=== PATIENT | male | born 1975 | race African-American/Black ===

== ENCOUNTER → 2017-05-10 | Outpatient (CLI) | payer BC ==
[2017-05-10 16:05] LABS: ALBUMIN 3.7 g/dL (3.4-5.0); ALK PHOS 75 U/L (46-116); ALT (SGPT) 40 U/L (16-63); AST (SGOT) 20 U/L (15-37); DIRECT BILIRUBIN 0.1 mg/dL (0.0-0.2); TOTAL BILIRUBIN 0.5 mg/dL (0.2-1.0); TOTAL PROTEIN 7.5 g/dL (6.4-8.2)
== END | disposition home or self-care (01) ==
LOC: LAB 15:32
DX: B35.1 Tinea unguium (principal)
CPT/HCPCS: 36415; 80076

== ENCOUNTER 2018-12-08 13:11 | Emergency (ER) | payer BC ==
[~2018-12-08] VITALS: Ht 182.9 cm; Wt 98.4 kg
--- NOTE | 2018-12-08 13:47 | RAD ---
CT HEAD WITHOUT CONTRAST 12/08/2018 1:30 PM Indication: Syncope Comparison: None Procedure: Multidetector CT imaging of the head was performed without the administration of contrast. Findings: There is no evidence of acute intracranial hemorrhage. There is no evidence of acute territorial infarction. Please note that CT is limited for evaluation of acute ischemia. No mass effect or midline shift is identified . The ventricles and basilar cisterns have an appropriate appearance. No abnormal extra-axial fluid collections are seen. No acute osseous changes are identified. Impression: No evidence of acute intracranial abnormality CT DOSING PQRS STATEMENT: One or more of the following individualized dose reduction techniques were utilized for this examination: 1. Automated exposure control 2. Adjustment of the mA and/or kV according to patient size 3. Use of iterative reconstruction technique Electronically signed by: Lorenzo Guzmán MD (12/08/2018 1:44 PM) [email or web address]
--- NOTE | 2018-12-08 13:49 | RAD ---
Examination: PORTABLE CHEST 1V History: Syncope Comparison/Correlation: None Findings: Portable upright frontal view of the chest was obtained. Heart size and pulmonary loss internal. No infiltrate or pleural effusion. No pneumothorax. Bony structures are unremarkable. Impression: No active disease. All Electronically signed by: Basilio Hurd MD (12/08/2018 1:46 PM) [facility]
[2018-12-08] MEDS: IV NORMAL SALINE 1000ML BAG 1,000 ML IV ONE (13:54)
[2018-12-08 14:19] LABS: BASO # 0.1 x10^3/uL (0.0-0.2); BASO % 2 % (0-3); EOS % 1 % (0-3); HEMATOCRIT 46.1 % (39.0-53.0); LYMPH # 1.2 x10^3/uL (1.0-4.8); LYMPH % 42 % (24-48); MEAN CORPUSCULAR HEMOGLOBIN 33 pg (25-35); MEAN CORPUSCULAR HGB CONC 35 g/dL (31-37); MEAN CORPUSCULAR VOLUME 94 fL (79-100); MONO # 0.3 x10^3/uL (0.0-1.1); MONO % 10 % (0-9); NEUT # 1.3 x10^3/uL (1.8-7.7); NEUT % 45 % (31-73); PLATELET COUNT 196 x10^3/uL (140-400); WHITE BLOOD COUNT 2.9 x10^3/uL (4.0-11.0)
[2018-12-08 14:58] LABS: CALCIUM 8.9 mg/dL (8.5-10.1); CREATININE 1.3 mg/dL (0.7-1.3); GFR 73.3; POTASSIUM 4.4 mmol/L (3.5-5.1)
[2018-12-08 15:04] LABS: ALBUMIN 3.6 g/dL (3.4-5.0); ALBUMIN/GLOBULIN RATIO 1.2 (1.0-1.7); TOTAL BILIRUBIN 0.4 mg/dL (0.2-1.0); TOTAL PROTEIN 6.6 g/dL (6.4-8.2)
--- NOTE | 2018-12-08 15:05 | PHYS DOC ---
Past Medical History Past Medical History: Hypertension Past Surgical History: No Surgical History Alcohol Use: None Drug Use: None Adult General Chief Complaint Chief Complaint: SYNCOPE HPI HPI Patient is a 43 year old male who presents EMS because of syncope. Patient states he did not eat anything today and doing heavy exercise with lifting weight and felt dizzy and lightheadedness. Patient states he had a syncopal episode and then woke up he was on the floor of his room with shortness of breath and hyperventilation and called his sister called 911. EMS reported the patient was anxious and hyperventilating with diaphoresis elevation of blood pressure that improved on his way to come to the hospital. Patient denies focal neuro deficit, his pain, headache, blurred vision, history of syncope. Review of Systems Review of Systems Constitutional: Denies fever or chills [] Eyes: Denies change in visual acuity, redness, or eye pain [] HENT: Denies nasal congestion or sore throat [] Respiratory: Denies cough or shortness of breath [] Cardiovascular: No additional information not addressed in HPI [] GI: Denies abdominal pain, nausea, vomiting, bloody stools or diarrhea [] : Denies dysuria or hematuria [] Musculoskeletal: Denies back pain or joint pain [] Integument: Denies rash or skin lesions [] Neurologic: Denies headache, focal weakness or sensory changes [] Endocrine: Denies polyuria or polydipsia [] All other systems were reviewed and found to be within normal limits, except as documented in this note. Current Medications Current Medications Current Medications Medications (Trade) Dose Ordered Sig/Katrina Start Time Stop Time Status Last Admin Dose Admin Sodium Chloride 1,000 ml @ 1,000 mls/hr 1X ONCE 12/08/18 14:00 12/08/18 14:59 DC 12/08/18 13:54 1,000 MLS/HR Allergies Allergies Allergies Coded Allergies Type Severity Reaction Last Updated Verified Sulfa (Sulfonamide Antibiotics) Allergy Intermediate 12/08/18 Yes Physical Exam Physical Exam Constitutional: Well developed, well nourished, no acute distress, non-toxic appearance. [] HENT: Normocephalic, atraumatic, bilateral external ears normal, oropharynx moist, no oral exudates, nose normal. [] Eyes: PERRLA, EOMI, conjunctiva normal, no discharge. [] Neck: Normal range of motion, no tenderness, supple, no stridor. [] Cardiovascular: Tachycardia, no murmur [] Lungs & Thorax: Bilateral breath sounds clear to auscultation [] Abdomen: Bowel sounds normal, soft, no tenderness, no masses, no pulsatile masses. [] Skin: Warm, dry, no erythema, no rash. [] Back: No tenderness, no CVA tenderness. [] Extremities: No tenderness, no cyanosis, no clubbing, ROM intact, no edema. [] Neurologic: Alert and oriented X 3, normal motor function, normal sensory fu nction, no focal deficits noted. [] Psychologic: Affect normal, judgement normal, mood normal. [] Current Patient Data Vital Signs Vital Signs Date Time Temp Pulse Resp B/P (MAP) Pulse Ox O2 Delivery O2 Flow Rate FiO2 12/08/18 15:27 100 18 143/89 (107) 99 Room Air 12/08/18 13:18 98.8 98.8 Lab Values Laboratory Tests Test 12/08/18 13:45 12/08/18 14:46 White Blood Count 2.9 x10^3/uL (4.0-11.0) L Red Blood Count 4.90 x10^6/uL (4.30-5.70) Hemoglobin 16.0 g/dL (13.0-17.5) Hematocrit 46.1 % (39.0-53.0) Mean Corpuscular Volume 94 fL (79-100) Mean Corpuscular Hemoglobin 33 pg (25-35) Mean Corpuscular Hemoglobin Concent 35 g/dL (31-37) Red Cell Distribution Width 13.0 % (11.5-14.5) Platelet Count 196 x10^3/uL (140-400) Neutrophils (%) (Auto) 45 % (31-73) Lymphocytes (%) (Auto) 42 % (24-48) Monocytes (%) (Auto) 10 % (0-9) H Eosinophils (%) (Auto) 1 % (0-3) Basophils (%) (Auto) 2 % (0-3) Neutrophils # (Auto) 1.3 x10^3/uL (1.8-7.7) L Lymphocytes # (Auto) 1.2 x10^3/uL (1.0-4.8) Monocytes # (Auto) 0.3 x10^3/uL (0.0-1.1) Eosinophils # (Auto) 0.0 x10^3/uL (0.0-0.7) Basophils # (Auto) 0.1 x10^3/uL (0.0-0.2) Sodium Level 141 mmol/L (136-145) Potassium Level 4.4 mmol/L (3.5-5.1) Chloride Level 109 mmol/L (98-107) H Carbon Dioxide Level 25 mmol/L (21-32) Anion Gap 7 (6-14) Blood Urea Nitrogen 10 mg/dL (8-26) Creatinine 1.3 mg/dL (0.7-1.3) Estimated GFR (Cockcroft-Gault) 73.3 BUN/Creatinine Ratio 8 (6-20) Glucose Level 91 mg/dL (70-99) Calcium Level 8.9 mg/dL (8.5-10.1) Magnesium Level 2.0 mg/dL (1.8-2.4) Total Bilirubin 0.4 mg/dL (0.2-1.0) Aspartate Amino Transferase (AST) 14 U/L (15-37) L Alanine Aminotransferase (ALT) 22 U/L (16-63) Alkaline Phosphatase 56 U/L (46-116) Troponin I Quantitative < 0.017 ng/mL (0.000-0.055) Total Protein 6.6 g/dL (6.4-8.2) Albumin 3.6 g/dL (3.4-5.0) Albumin/Globulin Ratio 1.2 (1.0-1.7) Laboratory Tests 12/08/18 13:45 Laboratory Tests 12/08/18 14:46 EKG EKG EKG interpreted by me. EKG at 1318 showed sinus tachycardia at rate of 116, right fourth axis, nonspecific ST and T-wave abnormalities, no acute ST elevation. Radiology/Procedures Radiology/Procedures [facility] [address] [place] [address] IMAGING REPORT Signed PATIENT: AYO ISAACS ACCOUNT: [id number] : 1975 LOCATION: ER AGE: 43 SEX: M EXAM STATUS: PRE ER ORD. PHYSICIAN: BYRON HAMMOND MD REASON: syncope PROCEDURE: PORTABLE CHEST 1V Examination: PORTABLE CHEST 1V History: Syncope Comparison/Correlation: None Findings: Portable upright frontal view of the chest was obtained. Heart size and pulmonary loss internal. No infiltrate or pleural effusion. No pneumothorax. Bony structures are unremarkable. Impression: No active disease. All Electronically signed by: Basilio Eng MD (12/08/2018 1:46 PM) [facility] DICTATED and SIGNED BY: BASILIO ENG MD DATE: 12/08/18 1346 [facility] [address] [place] [address] IMAGING REPORT Signed PATIENT: AYO ISAACS ACCOUNT: [id number] : 1975 LOCATION: ER AGE: 43 SEX: M EXAM STATUS: PRE ER ORD. PHYSICIAN: BYRON HAMMOND MD REASON: syncope PROCEDURE: CT HEAD WO CONTRAST CT HEAD WITHOUT CONTRAST 12/08/2018 1:30 PM Indication: Syncope Comparison: None Procedure: Multidetector CT imaging of the head was performed without the administration of contrast. Findings: There is no evidence of acute intracranial hemorrhage. There is no evidence of acute territorial infarction. Please note that CT is limited for evaluation of acute ischemia. No mass effect or midline shift is identified . The ventricles and basilar cisterns have an appropriate appearance. No abnormal extra-axial fluid collections are seen. No acute osseous changes are identified. Impression: No evidence of acute intracranial abnormality CT DOSING PQRS STATEMENT: One or more of the following individualized dose reduction techniques were utilized for this examination: 1. Automated exposure control 2. Adjustment of the mA and/or kV according to patient size 3. Use of iterative reconstruction technique Electronically signed by: Lorenzo Oswald MD (12/08/2018 1:44 PM) [facility] DICTATED and SIGNED BY: LORENZO OSWALD MD DATE: 12/08/18 1344 Course & Med Decision Making Course & Med Decision Making Pertinent Labs and Imaging studies reviewed. (See chart for details) Evaluation of patient in ER showed 43-year-old male patient brought in by EMS because of the syncopal episode after exercising without eating. Patient was anxious at the scene that improved at arrival to ER. Patient had tachycardia and treated with IV fluid with improvement of his condition. Patient had unremarkable CT head and labs except for white count of 2.9 and states that he had the cold symptoms sent and was advised to follow-up with his primary care physician for evaluation of leukopenia. Patient did not want to wait to have urine sample and UA. I've spoken with the patient and/or caregivers. I've explained the patient's condition, diagnosis and treatment plan based on information available to me at this time. I've answered the patient's and/or caregivers questions and addressed any concerns. The patient and/or caregivers have a good understanding the patient's diagnosis, condition and treatment plan as can be expected at this point. Vital signs have been stabilized. The patient's condition is stable for discharge from the emergency department. The patient will pursue further outpatient evaluation with her primary care provider or other designated consulting physician as outlined in the discharge instructions. Patient and/or caregivers are agreeable to this plan of care and follow-up instructions have been explained in detail. The patient and/or caregivers have received these instructions in written format and expressed understanding of these discharge instructions. The patient and her caregivers are aware that if any significant change in condition or worsening of symptoms s hould prompt him to immediately return to this of the closest emergency department. If an emergent department is not readily available I would encourage him to call 911. Amada Disclaimer Dragon Disclaimer This electronic medical record was generated, in whole or in part, using a voice recognition dictation system. Departure Departure Impression: Primary Impression: Syncope Additional Impressions: Leukopenia Head injury Anxiety about health Disposition: 01 HOME, SELF-CARE (at 1549) Condition: IMPROVED Referrals: SULMA MANN MD (PCP) Patient Instructions: Head Injury, Adult, Syncope Additional Instructions: Drink plenty of liquids Follow-up with your primary care physician in 3-5 days regarding low white blood cell Return to ER if not getting better Problem Qualifiers Primary Impression: Syncope Syncope type: unspecified Qualified Codes: R55 - Syncope and collapse Additional Impressions: Leukopenia Leukopenia type: unspecified Qualified Codes: D72.819 - Decreased white blood cell count, unspecified Head injury Encounter type: sequela Qualified Codes: S09.90XS - Unspecified injury of head, sequela KOUSHA,BYRON MD Dec 08, 2018 15:05
--- NOTE | 2018-12-08 15:06 | EKG ---
[facility] [address] [place] [address] Test Date: 2018-12-08 Test Time: 13:18:44 Pat Name: AYO ISAACS Department: Room: Gender: M [employer]: : 1975 Requested By: BYRON HAMMOND Order Number: [id number] Reading MD: Measurements Intervals [place] Rate: 116 P: 36 TX: 168 QRS: 101 QRSD: 86 T: 36 QT: 316 QTc: 445 Interpretive Statements SINUS TACHYCARDIA RIGHTWARD AXIS NON SPECIFIC ST-T ABNORMALITY (ELEVATION) OTHERWISE NORMAL ECG No previous ECG available for comparison
[2018-12-08 15:27] VITALS: BP 143/89
== END 2018-12-08 15:59 | disposition home or self-care (01) ==
LOC: ER 13:11
DX: S09.8XXA Other specified injuries of head, initial encounter (principal); R55 Syncope and collapse; D72.819 Decreased white blood cell count, unspecified; F41.9 Anxiety disorder, unspecified; R00.0 Tachycardia, unspecified; I10 Essential (primary) hypertension; R06.4 Hyperventilation; R06.02 Shortness of breath; Z88.2 Allergy status to sulfonamides; X58.XXXA Exposure to other specified factors, initial encounter; Y93.89 Activity, other specified; Y92.89 Other specified places as the place of occurrence of the external cause; Y99.8 Other external cause status
CPT/HCPCS: 36415; 70450; 71045; 80053; 83735; 84484; 85025; 93005; 96360; 99285; J7030